=== PATIENT | male | born 1970 | race Caucasian/White ===

== ENCOUNTER 2021-11-04 09:28 | Emergency (ER) | payer SELFPAY ==
[2021-11-04 11:02] LABS: #Basophils 0.1 thou/uL (0.0-0.2); #Eosinphils 0.1 thou/uL (0.0-0.7); #Lymphocytes 2.2 thou/uL (1.20-3.40); #Monocytes 0.7 thou/uL (0.11-0.59); #Neutrophils 5.8 thou/uL (1.40-6.50); %Eosinophils 0.8 % (0.0-10.0); %Lymphocytes 24.8 % (21.0-51.0); %Monocytes 7.5 % (0.0-10.0); %Neutrophils 65.8 % (42.0-75.0); Hemoglobin 14.4 g/dL (14.0-18.0); Mean Corpuscular HGB CONC 33.4 g/dL (32.0-36.0); Mean Corpuscular Hemoglobin 29.2 pg (27.0-31.0); Mean Corpuscular Volume 87.5 fL (78.0-98.0); Mean Platelet Volume 10.3 fL (7.4-10.4); Platelet Count 255 thou/uL (130-400); RBC Distribution Width 12.6 % (11.5-14.5); Red Blood Cell (RBC) Count 4.94 mill/uL (4.70-6.10); White Blood Cell (WBC) Count 8.8 thou/uL (4.8-10.8)
[2021-11-04 11:16] LABS: ALT (SGPT) 28 U/L (8-55); AST (SGOT) 20 U/L (5-34); Albumin 4.4 g/dL (3.5-5.0); Alkaline Phosphatase 66 U/L (40-110); Anion Gap 10 mmol/L (10-20); BUN (Urea Nitrogen) 15 mg/dL (8.9-20.6); Bilirubin, Total 0.3 mg/dL (0.2-1.2); Calc. Creatinine Clearance 0 mL/min (70-130); Calcium 11.7 mg/dL (7.8-10.44); Carbon Dioxide 26 mmol/L (22-29); Chloride 105 mmol/L (98-107); Globulin 3.7 g/dL (2.4-3.5); Glucose 99 mg/dL (70-105); Potassium 4.5 mmol/L (3.5-5.1); Protein, Total 8.1 g/dL (6.0-8.3); Sodium 136 mmol/L (136-145)
[2021-11-04] MEDS ORDERED: Meclizine HCl 25 MG TAB ONE (11:25)
[2021-11-04 12:47] LABS: Lipase 40 U/L (8-78); Magnesium 2.1 mg/dL (1.6-2.6)
== END 2021-11-04 13:15 | disposition home or self-care (01) ==
LOC: ERS 09:28
DX: R42 Dizziness and giddiness (principal); I10 Essential (primary) hypertension
CPT/HCPCS: 36415; 80053; 83690; 83735; 84484; 85025; 93005

== ENCOUNTER 2021-12-29 09:53 | Emergency (ER) | payer OTHER | END 2021-12-29 12:06 | disposition home or self-care (01) | LOC: ERS 09:53 | DX: L89.899 Pressure ulcer of other site, unspecified stage (principal); I10 Essential (primary) hypertension | CPT/HCPCS: 99283 ==

== ENCOUNTER 2022-03-09 19:29 | Emergency (ER) | payer OTHER ==
[2022-03-09 20:53] LABS: #Lymphocytes 2.5 thou/uL (1.20-3.40); #Monocytes 0.7 thou/uL (0.11-0.59); #Neutrophils 6.7 thou/uL (1.40-6.50); %Basophils 0.4 % (0.0-1.0); %Eosinophils 0.5 % (0.0-10.0); %Lymphocytes 24.9 % (21.0-51.0); %Monocytes 7.1 % (0.0-10.0); %Neutrophils 67.2 % (42.0-75.0); Hemoglobin 14.8 g/dL (14.0-18.0); Mean Corpuscular HGB CONC 33.3 g/dL (32.0-36.0); Mean Corpuscular Hemoglobin 30.1 pg (27.0-31.0); Mean Corpuscular Volume 90.2 fL (78.0-98.0); Mean Platelet Volume 10.4 fL (7.4-10.4); Platelet Count 229 thou/uL (130-400); RBC Distribution Width 12.2 % (11.5-14.5); Red Blood Cell (RBC) Count 4.93 mill/uL (4.70-6.10)
[2022-03-09] MEDS ORDERED: Ondansetron PF 4 MG/2 ML Vial ONE (21:08)
[2022-03-09 21:16] LABS: ALT (SGPT) 31 U/L (8-55); AST (SGOT) 19 U/L (5-34); Albumin 4.4 g/dL (3.5-5.0); Alkaline Phosphatase 75 U/L (40-110); Anion Gap 12 mmol/L (10-20); BUN (Urea Nitrogen) 8 mg/dL (8.9-20.6); Bilirubin, Total 0.4 mg/dL (0.2-1.2); Calc. Creatinine Clearance 0 mL/min (70-130); Calcium 11.2 mg/dL (7.8-10.44); Carbon Dioxide 24 mmol/L (22-29); Chloride 107 mmol/L (98-107); Globulin 3.8 g/dL (2.4-3.5); Glucose 102 mg/dL (70-105); Lipase 33 U/L (8-78); Potassium 3.5 mmol/L (3.5-5.1); Protein, Total 8.2 g/dL (6.0-8.3); Sodium 139 mmol/L (136-145)
== END 2022-03-09 23:37 | disposition home or self-care (01) ==
LOC: ERS 19:29
DX: R11.0 Nausea (principal); I10 Essential (primary) hypertension
CPT/HCPCS: 36415; 80053; 83690; 85025; 96374; J2405

== ENCOUNTER 2022-04-28 09:35 | Emergency (ER) | payer OTHER ==
[2022-04-28 10:41] LABS: #Lymphocytes 2.2 thou/uL (1.20-3.40); #Monocytes 0.6 thou/uL (0.11-0.59); #Neutrophils 6.5 thou/uL (1.40-6.50); %Basophils 0.2 % (0.0-1.0); %Eosinophils 0.2 % (0.0-10.0); %Lymphocytes 23.2 % (21.0-51.0); %Monocytes 6.7 % (0.0-10.0); %Neutrophils 69.7 % (42.0-75.0); Hemoglobin 15.4 g/dL (14.0-18.0); Mean Corpuscular HGB CONC 32.9 g/dL (32.0-36.0); Mean Corpuscular Hemoglobin 29.8 pg (27.0-31.0); Mean Corpuscular Volume 90.4 fL (78.0-98.0); Mean Platelet Volume 10.4 fL (7.4-10.4); Platelet Count 221 thou/uL (130-400); Red Blood Cell (RBC) Count 5.17 mill/uL (4.70-6.10); White Blood Cell (WBC) Count 9.3 thou/uL (4.8-10.8)
[2022-04-28 11:04] LABS: ALT (SGPT) 33 U/L (8-55); AST (SGOT) 22 U/L (5-34); Albumin 4.3 g/dL (3.5-5.0); Alkaline Phosphatase 89 U/L (40-110); Anion Gap 12 mmol/L (10-20); BUN (Urea Nitrogen) 16 mg/dL (8.9-20.6); Bilirubin, Total 0.4 mg/dL (0.2-1.2); Calc. Creatinine Clearance 0 mL/min (70-130); Carbon Dioxide 24 mmol/L (22-29); Chloride 104 mmol/L (98-107); Estimated GFR 96; Globulin 4.1 g/dL (2.4-3.5); Glucose 112 mg/dL (70-105); Lipase 48 U/L (8-78); Potassium 4.4 mmol/L (3.5-5.1); Protein, Total 8.4 g/dL (6.0-8.3); Sodium 136 mmol/L (136-145)
[2022-04-28 11:19] LABS: Calcium 12.5 mg/dL (7.8-10.44)
[2022-04-28 13:16] LABS: Bilirubin Negative (Negative); Blood, Urine Negative (Negative); Clarity Clear (Clear); Glucose, Urine (Dipstick) Normal (Negative); Ketone, Urine Negative (Negative); Leukocyte Negative Leu/uL (Negative); Nitrite Negative (Negative); Protein, Urine (Dipstick) Negative (Neg-Trace); Specific Gravity, Urine 1.009 (1.002-1.036); Urobilinogen Normal mg/dL (Less than 2); pH, Urine 7.5 (5.0-9.0)
[2022-04-28] MEDS ORDERED: Lorazepam 1 MG TAB ONE (15:11)
== END 2022-04-28 15:26 | disposition home or self-care (01) ==
LOC: ERS 09:35
DX: R33.9 Retention of urine, unspecified (principal); R10.30 Lower abdominal pain, unspecified; E83.52 Hypercalcemia; J90 Pleural effusion, not elsewhere classified; I10 Essential (primary) hypertension; Z79.899 Other long term (current) drug therapy
CPT/HCPCS: 36415; 74176; 80053; 81003; 83690; 85025; 93005

== ENCOUNTER 2022-05-06 08:22 | Outpatient (CLI) | payer OTHER ==
[~2022-05-06 08:22] MED LIST: ISOVUE-370 76%-LOCM 1 ML ONE
== END 2022-05-06 08:23 | disposition home or self-care (01) ==
LOC: BICCT 08:22
PROVIDERS: ATTEND Specialist
DX: E83.52 Hypercalcemia (principal); E04.2 Nontoxic multinodular goiter
CPT/HCPCS: 70492; Q9966

== ENCOUNTER 2022-06-01 15:38 | Outpatient (CLI) | payer OTHER | END 2022-06-01 15:39 | disposition home or self-care (01) | LOC: BICULT 15:38 | PROVIDERS: ATTEND Specialist | DX: I10 Essential (primary) hypertension (principal); E04.2 Nontoxic multinodular goiter | CPT/HCPCS: 76536 ==

== ENCOUNTER 2022-07-29 08:54 | Outpatient (CLI) | payer OTHER | END 2022-07-29 08:55 | disposition home or self-care (01) | LOC: BICMAMMO 08:54 | PROVIDERS: ATTEND Student in an Organized Health Care Education/Training Program | DX: Z13.820 Encounter for screening for osteoporosis (principal); E21.0 Primary hyperparathyroidism | CPT/HCPCS: 77080 ==

== ENCOUNTER 2023-01-05 05:54 | Emergency (ER) | payer OTHER ==
[2023-01-05] MEDS ORDERED: Activated Charcoal/Sorbitol 25 GM/120 ML TUBE ONE (06:14)
[2023-01-05] MEDS ORDERED: Oxymetazoline HCl 0.05% (30 ML BOT) ONE (06:14)
[2023-01-05 06:53] LABS: #Lymphocytes 1.9 thou/uL (1.20-3.40); #Monocytes 0.7 thou/uL (0.11-0.59); #Neutrophils 13.6 thou/uL (1.40-6.50); %Basophils 0.2 % (0.0-1.0); %Eosinophils 0.3 % (0.0-10.0); %Lymphocytes 11.5 % (21.0-51.0); %Monocytes 4.6 % (0.0-10.0); %Neutrophils 83.4 % (42.0-75.0); Hemoglobin 15.3 g/dL (14.0-18.0); Mean Corpuscular HGB CONC 33.4 g/dL (32.0-36.0); Mean Corpuscular Hemoglobin 30.2 pg (27.0-31.0); Mean Corpuscular Volume 90.5 fl (78.0-98.0); Platelet Count 245 10x3/uL (130-400); Red Blood Cell (RBC) Count 5.06 mill/uL (4.70-6.10); White Blood Cell (WBC) Count 16.2 10x3/uL (4.8-10.8)
[2023-01-05 07:07] LABS: PTT 26.5 sec (22.9-36.1); Prothrombin Time 13.4 sec (12.0-14.7)
[2023-01-05 07:14] LABS: ALT (SGPT) 37 U/L (8-55); AST (SGOT) 19 U/L (5-34); Albumin 4.1 g/dL (3.5-5.0); Alkaline Phosphatase 60 U/L (40-110); Anion Gap 15 mmol/L (10-20); BUN (Urea Nitrogen) 17 mg/dL (8.4-25.7); Bilirubin, Total 0.3 mg/dL (0.2-1.2); Calc. Creatinine Clearance 0 mL/min (70-130); Calcium 11.3 mg/dL (7.8-10.44); Carbon Dioxide 18 mmol/L (22-29); Chloride 105 mmol/L (98-107); Estimated GFR 105; Globulin 3.8 g/dL (2.4-3.5); Glucose 122 mg/dL (70-105); Potassium 3.9 mmol/L (3.5-5.1); Protein, Total 7.9 g/dL (6.0-8.3); Sodium 134 mmol/L (136-145)
[2023-01-05 08:51] LABS: Bilirubin Negative (Negative); Blood, Urine Negative (Negative); Clarity Clear (Clear); Glucose, Urine (Dipstick) Normal (Negative); Ketone, Urine Negative (Negative); Leukocyte Negative Leu/uL (Negative); Nitrite Negative (Negative); Protein, Urine (Dipstick) Negative (Neg-Trace); Specific Gravity, Urine 1.006 (1.002-1.036); Urobilinogen Normal mg/dL (Less than 2); pH, Urine 6.5 (5.0-9.0)
[2023-01-05 08:59] LABS: Amphetamine Not Detected (NotDetected); Barbiturates Screen Not Detected (NotDetected); Benzodiazepine Screen Detected (NotDetected); Cocaine Metabolite Screen Not Detected (NotDetected); Methadone Not Detected (NotDetected); Methamphetamine Not Detected (NotDetected); Opiate Screen Not Detected (NotDetected); Oxycodone Screen Not Detected (NotDetected); Phencyclidine (PCP) Not Detected (NotDetected); THC/Cannabinoid Screen Not Detected (NotDetected); Tricyclic Screen Not Detected (NotDetected)
== END 2023-01-05 10:10 | disposition home or self-care (01) ==
LOC: ERS 05:54
DX: R04.0 Epistaxis (principal); R00.0 Tachycardia, unspecified; D72.829 Elevated white blood cell count, unspecified; I10 Essential (primary) hypertension; Z79.899 Other long term (current) drug therapy
CPT/HCPCS: 30901; 36415; 80053; 80306; 81003; 83605; 85025; 85610; 85730; 87040; 87086; 93005; 96360; 96361

== ENCOUNTER 2023-05-27 12:34 | Outpatient (CLI) | payer OTHER ==
[2023-05-27] MEDS ORDERED: Iopamidol-370 76% 500 ML MDV (1 ML CHARGE) ONE (15:14)
== END 2023-05-27 12:35 | disposition home or self-care (01) ==
LOC: BICCT 12:34
PROVIDERS: ATTEND Specialist
DX: E21.3 Hyperparathyroidism, unspecified (principal)
CPT/HCPCS: 70492; 82565; Q9967

== ENCOUNTER 2023-08-25 10:41 | Emergency (ER) | payer OTHER ==
[~2023-08-25 10:41] MED LIST changes: -ISOVUE-370 76%-LOCM 1 ML ONE; +Iopamidol-370 76% 500 ML MDV (1 ML CHARGE) ONE
[2023-08-25] MEDS ORDERED: Ondansetron PF 4 MG/2 ML Vial ONE (12:18)
[2023-08-25 12:30] LABS: #Monocytes 0.9 thou/uL (0.11-0.59); #Neutrophils 7.2 thou/uL (1.40-6.50); %Basophils 0.4 % (0.0-1.0); %Eosinophils 0.4 % (0.0-10.0); %Lymphocytes 27.2 % (21.0-51.0); %Monocytes 7.8 % (0.0-10.0); %Neutrophils 63.9 % (42.0-75.0); Hematocrit 47.1 % (42.0-52.0); Hemoglobin 15.9 g/dL (14.0-18.0); Mean Corpuscular HGB CONC 33.8 g/dL (32.0-36.0); Mean Corpuscular Hemoglobin 29.6 pg (27.0-31.0); Mean Corpuscular Volume 87.5 fl (78.0-98.0); Mean Platelet Volume 12.3 fL (7.4-10.4); Platelet Count 271 10x3/uL (130-400); RBC Distribution Width 13.1 % (11.5-14.5); Red Blood Cell (RBC) Count 5.38 mill/uL (4.70-6.10); White Blood Cell (WBC) Count 11.2 10x3/uL (4.8-10.8)
[2023-08-25 12:51] LABS: ALT (SGPT) 39 U/L (8-55); AST (SGOT) 20 U/L (5-34); Albumin 4.8 g/dL (3.5-5.0); Alkaline Phosphatase 68 U/L (40-110); Anion Gap 12 mmol/L (10-20); BUN (Urea Nitrogen) 14 mg/dL (8.4-25.7); Bilirubin, Total 0.4 mg/dL (0.2-1.2); Calc. Creatinine Clearance 0 mL/min (70-130); Calcium 12.1 mg/dL (7.8-10.44); Carbon Dioxide 21 mmol/L (22-29); Chloride 106 mmol/L (98-107); Estimated GFR 98; Globulin 3.5 g/dL (2.4-3.5); Glucose 103 mg/dL (70-105); Lipase 37 U/L (8-78); Potassium 3.8 mmol/L (3.5-5.1); Protein, Total 8.3 g/dL (6.0-8.3); Sodium 135 mmol/L (136-145)
[2023-08-25 13:14] LABS: Troponin I Less than 0.010 ng/mL (< 0.028)
== END 2023-08-25 15:00 | disposition home or self-care (01) ==
LOC: ERS 10:41
DX: K59.00 Constipation, unspecified (principal); E83.52 Hypercalcemia; R03.0 Elevated blood-pressure reading, without diagnosis of hypertension; I10 Essential (primary) hypertension; Z79.899 Other long term (current) drug therapy
CPT/HCPCS: 36415; 74177; 80053; 83690; 84443; 84484; 85025; 93005; 96361; 96374; J2405; Q9967

== ENCOUNTER 2023-12-15 14:45 | Emergency (ER) | payer OTHER ==
[2023-12-15 17:01] LABS: #Basophils 0.1 thou/uL (0.0-0.2); #Monocytes 0.6 thou/uL (0.11-0.59); #Neutrophils 5.3 thou/uL (1.40-6.50); %Basophils 0.6 % (0.0-1.0); %Eosinophils 0.4 % (0.0-10.0); %Lymphocytes 29.3 % (21.0-51.0); %Monocytes 7.4 % (0.0-10.0); %Neutrophils 62.1 % (42.0-75.0); Hematocrit 48.9 % (42.0-52.0); Hemoglobin 16.4 g/dL (14.0-18.0); Mean Corpuscular HGB CONC 33.5 g/dL (32.0-36.0); Mean Corpuscular Hemoglobin 29.7 pg (27.0-31.0); Mean Corpuscular Volume 88.4 fl (78.0-98.0); Mean Platelet Volume 12.7 fL (7.4-10.4); Platelet Count 259 10x3/uL (130-400); RBC Distribution Width 13.2 % (11.5-14.5); Red Blood Cell (RBC) Count 5.53 mill/uL (4.70-6.10); White Blood Cell (WBC) Count 8.6 10x3/uL (4.8-10.8)
[2023-12-15 17:22] LABS: Anion Gap 10 mmol/L (10-20); BUN (Urea Nitrogen) 15 mg/dL (8.4-25.7); Calc. Creatinine Clearance 0 mL/min (70-130); Calcium 11.6 mg/dL (7.8-10.44); Carbon Dioxide 23 mmol/L (22-29); Chloride 109 mmol/L (98-107); Estimated GFR 98; Glucose 97 mg/dL (70-105); Potassium 4.8 mmol/L (3.5-5.1); Sodium 137 mmol/L (136-145)
[2023-12-15 17:35] LABS: Troponin I Less than 0.010 ng/mL (< 0.028)
== END 2023-12-15 19:00 | disposition home or self-care (01) ==
LOC: ERS 14:45
DX: F41.8 Other specified anxiety disorders (principal); R00.2 Palpitations; R06.02 Shortness of breath; I10 Essential (primary) hypertension
CPT/HCPCS: 36415; 71046; 80048; 84484; 85025; 93005

== ENCOUNTER 2024-01-08 18:46 | Emergency (ER) | payer OTHER ==
[2024-01-08 19:17] LABS: Hematocrit 50.1 % (42.0-52.0); Hemoglobin 17.2 g/dL (14.0-18.0); Manual Diff?? YES; Mean Corpuscular HGB CONC 34.3 g/dL (32.0-36.0); Mean Corpuscular Hemoglobin 29.5 pg (27.0-31.0); Mean Corpuscular Volume 85.8 fl (78.0-98.0); Mean Platelet Volume 11.8 fL (7.4-10.4); Platelet Count 310 10x3/uL (130-400); RBC Distribution Width 13.1 % (11.5-14.5); Red Blood Cell (RBC) Count 5.84 mill/uL (4.70-6.10); White Blood Cell (WBC) Count 12.5 10x3/uL (4.8-10.8)
[2024-01-08 19:19] LABS: Delete Auto Diff?? YES
[2024-01-08] MEDS ORDERED: LORazepam 2 MG/ML SYR.(CARPUJECT) ONE (19:26)
[2024-01-08 19:38] LABS: Band 2 % (5-11); CellaVision Operator ID lab.dlt; Lymphocytes 24 % (21-51); Monocytes 7 % (0-10); Neutrophil 62 % (42-75); Platelet Adequacy Comment Platelets Normal; Reactive Lymphocytes 5 % (0-10); Total Cell Count 100
[2024-01-08 19:40] LABS: ALT (SGPT) 48 U/L (8-55); AST (SGOT) 25 U/L (5-34); Albumin 4.5 g/dL (3.5-5.0); Alkaline Phosphatase 81 U/L (40-110); Anion Gap 14 mmol/L (10-20); BUN (Urea Nitrogen) 10 mg/dL (8.4-25.7); Bilirubin, Total 0.6 mg/dL (0.2-1.2); CK (CPK) 44 U/L (30-200); Calc. Creatinine Clearance 0 mL/min (70-130); Calcium 12.1 mg/dL (7.8-10.44); Carbon Dioxide 23 mmol/L (22-29); Chloride 104 mmol/L (98-107); Estimated GFR 92; Globulin 3.9 g/dL (2.4-3.5); Glucose 113 mg/dL (70-105); Potassium 3.8 mmol/L (3.5-5.1); Protein, Total 8.4 g/dL (6.0-8.3); Sodium 137 mmol/L (136-145)
[2024-01-08 19:59] LABS: Acetaminophen Less than 10 mcg/mL (10.0-30.0); Alcohol Less than 10.0 mg/dL (Less than 10); Lipase 46 U/L (8-78); Magnesium 2.4 mg/dL (1.6-2.6); Salicylate Less than 8.0 mg/dL (15.0-30.0)
[2024-01-08 20:51] LABS: Amphetamine Not Detected (NotDetected); Barbiturates Screen Not Detected (NotDetected); Benzodiazepine Screen Detected (NotDetected); Cocaine Metabolite Screen Not Detected (NotDetected); Methadone Not Detected (NotDetected); Methamphetamine Not Detected (NotDetected); Opiate Screen Not Detected (NotDetected); Oxycodone Screen Not Detected (NotDetected); Phencyclidine (PCP) Not Detected (NotDetected); THC/Cannabinoid Screen Not Detected (NotDetected); Tricyclic Screen Not Detected (NotDetected)
== END 2024-01-08 20:56 | disposition home or self-care (01) ==
LOC: ERS 18:46
DX: R42 Dizziness and giddiness (principal); R00.0 Tachycardia, unspecified; R00.2 Palpitations; R51.9 Headache, unspecified; I10 Essential (primary) hypertension
CPT/HCPCS: 70450; 71045; 80053; 80306; 80307; 82550; 83690; 83735; 84443; 84484; 85025; 93005; 96374; J2060

== ENCOUNTER 2024-09-25 21:54 | Emergency (ER) | payer OTHER ==
[2024-09-25 22:16] LABS: #Basophils Less than 0.03 10x3/uL (0.0-0.2); %Basophils 0.2 % (0.0-1.0); %Eosinophils 0.3 % (0.0-10.0); %Lymphocytes 19.6 % (21.0-51.0); %Monocytes 6.5 % (0.0-10.0); %Neutrophils 73.2 % (42.0-75.0); Hematocrit 45.4 % (42.0-52.0); Hemoglobin 15.3 g/dL (14.0-18.0); Mean Corpuscular HGB CONC 33.7 g/dL (32.0-36.0); Mean Corpuscular Hemoglobin 29.4 pg (27.0-31.0); Mean Corpuscular Volume 87.3 fL (78.0-98.0); Mean Platelet Volume 11.2 fL (7.4-10.4); Platelet Count 250 10x3/uL (130-400); RBC Distribution Width 12.6 % (11.5-14.5)
[2024-09-25] MEDS ORDERED: hydrOXYzine 25 MG TAB ONE (22:22)
[2024-09-25 22:36] LABS: ALT (SGPT) 25 U/L (8-55); AST (SGOT) 17 U/L (5-34); Albumin 3.9 g/dL (3.5-5.0); Alkaline Phosphatase 92 U/L (40-110); Anion Gap 12 mmol/L (10-20); BUN (Urea Nitrogen) 8 mg/dL (8.4-25.7); Bilirubin, Total 0.5 mg/dL (0.2-1.2); Calc. Creatinine Clearance 0 mL/min (70-130); Calcium 11.3 mg/dL (7.8-10.44); Carbon Dioxide 22 mmol/L (22-29); Chloride 102 mmol/L (98-107); Estimated GFR 92; Globulin 4.1 g/dL (2.4-3.5); Glucose 109 mg/dL (70-105); Potassium 3.9 mmol/L (3.5-5.1); Sodium 132 mmol/L (136-145)
[2024-09-25 22:40] LABS: Troponin I Less than 0.010 ng/mL (< 0.028)
== END 2024-09-25 23:41 | disposition home or self-care (01) ==
LOC: ERS 21:54
DX: F41.9 Anxiety disorder, unspecified (principal); R10.13 Epigastric pain; I11.0 Hypertensive heart disease with heart failure; I50.9 Heart failure, unspecified
CPT/HCPCS: 36415; 80053; 83690; 84484; 85025; 93005; 99283

== ENCOUNTER 2024-09-30 20:28 | Emergency (ER) | payer OTHER ==
[2024-09-30 21:24] LABS: #Basophils 0.04 10x3/uL (0.0-0.2); #Eosinophils Less than 0.03 10x3/uL (0.0-0.7); %Basophils 0.5 % (0.0-1.0); %Eosinophils 0.2 % (0.0-10.0); %Lymphocytes 28.9 % (21.0-51.0); %Monocytes 6.7 % (0.0-10.0); %Neutrophils 63.5 % (42.0-75.0); Hematocrit 47.3 % (42.0-52.0); Hemoglobin 15.5 g/dL (14.0-18.0); Mean Corpuscular HGB CONC 32.8 g/dL (32.0-36.0); Mean Corpuscular Volume 88.6 fL (78.0-98.0); Mean Platelet Volume 12.1 fL (7.4-10.4); Platelet Count 280 10x3/uL (130-400); RBC Distribution Width 12.8 % (11.5-14.5); Red Blood Cell (RBC) Count 5.34 mill/uL (4.70-6.10)
[2024-09-30 21:43] LABS: ALT (SGPT) 27 U/L (8-55); AST (SGOT) 19 U/L (5-34); Alkaline Phosphatase 84 U/L (40-110); Anion Gap 12 mmol/L (10-20); BUN (Urea Nitrogen) 10 mg/dL (8.4-25.7); Bilirubin, Total 0.5 mg/dL (0.2-1.2); Calc. Creatinine Clearance 0 mL/min (70-130); Calcium 11.5 mg/dL (7.8-10.44); Carbon Dioxide 22 mmol/L (22-29); Chloride 104 mmol/L (98-107); Estimated GFR 91; Globulin 4.3 g/dL (2.4-3.5); Glucose 99 mg/dL (70-105); Lipase 44 U/L (8-78); Potassium 4.2 mmol/L (3.5-5.1); Protein, Total 8.3 g/dL (6.0-8.3); Sodium 134 mmol/L (136-145)
[2024-09-30 22:15] LABS: Bacteria/HPF None Seen HPF (None Seen); Bilirubin Negative (Negative); Blood, Urine Negative (Negative); CAUTI Indications for Culture Dysuria,urgency,freq; Clarity Clear (Clear); Glucose, Urine (Dipstick) 500 mg/dL (Negative); Ketone, Urine Negative (Negative); Leukocyte Negative Leu/uL (Negative); Nitrite Negative (Negative); Protein, Urine (Dipstick) Negative (Neg-Trace); RBC/HPF None Seen HPF (0-3); Squamous Epithelial None Seen HPF (0-3); Urobilinogen Normal mg/dL (Less than 2); WBC/HPF None Seen HPF (0-3); pH, Urine 6.5 (5.0-9.0)
[2024-09-30 22:17] LABS: Specific Gravity, Urine 1.006 (1.002-1.036)
[2024-09-30 22:18] LABS: Urine Culture Reflex No No
== END 2024-10-01 00:23 | disposition home or self-care (01) ==
LOC: ERS 20:28
DX: F41.9 Anxiety disorder, unspecified (principal); I11.0 Hypertensive heart disease with heart failure; I50.9 Heart failure, unspecified
CPT/HCPCS: 36415; 80053; 81001; 83690; 85025; 99283